=== PATIENT | female | born 1975 | race Caucasian/White ===

== ENCOUNTER 2019-03-03 08:47 | Day surgery (SDC) | payer OTHER, SELFPAY ==
--- NOTE | 2019-02-22 08:26 | HP.PCM_ITS ---
History and Physical Date of Admission: 03/03/19 Marielena Valencia is a 43 year old female who presents for vaginal wall cyst. Pt would like removal of cyst as it does affect her. Pt reports has noticed the mass protruding from vagina- although she reports over past couple of weeks it is not as swollen. Pt is still opting for removal at this time. Pt is scheduled for Vaginal wall cyst removal on 03/03/19 at [facility]. PAST MEDICAL HISTORY Diagnosis Date ? NEGATIVE MEDICAL HISTORY PAST SURGICAL HISTORY Procedure Laterality Date ? FULL ROUT OBSTE CARE, DELIV 03/04/2006 Breech - Male 6lbs 4oz. Assist - [place] FAMILY HISTORY Problem Relation Age of Onset ? Hypertension Mother ? Thyroid Mother Hypothyroidism ? Diabetes Mother ? Lipids Mother High Cholesterol ? Coronary Artery Disease Mother ? Heart Mother [place] ? Cancer Mother Bio-Duct Cancer ? other (Hypoglycemia) Mother ? Lipids Father High Cholesterol ? Coronary Artery Disease Father ? Hypertension Maternal Grandmother ? Aneurysm Maternal Grandmother ? Breast Cancer Paternal Grandmother ? Heart Maternal Uncle ? Diabetes Other MGGM Social History Socioeconomic History Marital status: Spouse name: Not on file Number of children: 1 Years of education: Not on file Highest education level: Not on file Social Needs Financial resource strain: Not on file Food insecurity - worry: Not on file Food insecurity - inability: Not on file Transportation needs - medical: Not on file Transportation needs - non-medical: Not on file Occupational History Occupation: Manager Of Sales Employer: [employer] Tobacco Use Smoking status: Never Smoker Smokeless tobacco: Never Used Substance and Sexual Activity Alcohol use: No Drug use: No Sexual activity: Not Currently Partners: Male Other Topics Concerns: Not on file Social History Narrative Not on file Current Outpatient Medications: Desogestrel-Ethinyl Estradiol (APRI) 0.15-0.03 mg per tablet Take 1 tablet by mouth once daily. MULTIVIT WITH CALCIUM,IRON,MIN (WOMEN'S DAILY MULTIVITAMIN ORAL) Take by mouth. ergocalciferol(VITAMIN D 400 UNIT CAP) Take one(1) tablet daily. ascorbic acid(VITAMIN C 500 MG TAB) Take one(1) tablet daily. ibuprofen (MOTRIN) 600 mg tablet Take 1 tablet by mouth every 6 hours as needed. FOR PAIN. No current facility-administered medications for this visit. Allergies As of Date: 02/22/2019 Allergen Noted Reaction ERYTHROMYCIN 09/10/2006 Hives Fully Assessed 02/22/2019 REVIEW OF SYSTEMS Abdomen: no pain Bladder: no dysuria .. Expanded ROS: GENERAL: Negative for fever Allergies and current medication updated:Yes EXAM: BP 102/58 Ht 5' 5.748 (1.67m) Wt 169 lb (76.7kg) LMP 02/08/2019 BMI 27.49 kg/(m^2). GENERAL: pleasant, female in no apparent distress HEENT: Normocephalic and atraumatic NECK: full range of motion DERMATOLOGY: Normal, without lesions, non-icteric and non-hirsute CARDIAC: regular rate and rhythm CHEST: Clear to auscultation Normal inspiratory effort NEURO: alert and oriented x3,exam grossly non-focal ASSESSMENT AND PLAN: Encounter Diagnosis ICD-10-CM 1. Vaginal wall cyst N89.8 2. Decision for surgical removal per patient request. 3. Pt has been counseled on risks/benefits and alternatives of surgery including but not limited to anesthesia, bleeding, infection, injury to pelvic structures as well as . Consent signed. 4. Motrin given post op pain 5. Restrictions reviewed for post op Brianna Aguilar MD
[2019-03-03] VITALS (7 sets, daily range): BP systolic 115–124; BP diastolic 72–79; PULSE 66–73; RESP 16; TEMP 36.6–37; O2SAT 99–100; BMI 27.2
[2019-03-03 09:10] LABS: Internal QC Validated? YES +Cl - CLEAR BKGD
[2019-03-03 09:13] LABS: Pregnancy, Urine Negative Negative
--- NOTE | 2019-03-03 11:00 | VAGW_PTH ---
PATIENT: MARYELLEN FLETCHER [place] [facility] [place][id number] AGE/SX: 43/F ROOM: RE03/03/[address]: Dr. Brianna Aguilar, MDDOB: 1975 BED: DIS: 03/03/2019 SPEC #: [id number] RECD: 03/04/19 07:13 STATUS: BRIANNA ALAN #: [id number] JADA: 03/03/19 11:[address]: Brianna Aguilar DEPT: SURGICAL PATHOLOGY RECD BY: Troy Gomez ENTERED: 03/04/19 10:58 SP TYPE: VAG WALL OTHR DR: No Primary Care Phys Tissues: Vagina, NOS Procedures: Surgery Specimen Level IV HEADER OPERATION: Removal cyst, vaginal wall PRE-OP DIAGNOSIS: Vaginal cyst TISSUE SUBMITTED: Vaginal cyst and vaginal wall MICROSCOPIC DIAGNOSIS Vaginal cyst and vaginal wall, biopsy: Fragments of squamous mucosa with minimal chronic inflammation. Benign fibrous walled cyst. No evidence of malignancy. AM:anna 03/07/19 MICROSCOPIC DESCRIPTION Slides are reviewed. GROSS DESCRIPTION Received in fixative is one container labeled with the patient's name and designated vaginal cyst and vaginal wall. The specimen consists of an irregular piece of whyte mucosal tissue measuring 3.5 x 1.5 x 0.3 cm. Also present in the container are two smaller pieces of mucosal tissue measuring 1.5 x 0.1 x 0.1 cm and 1 x 0.3 x 0.3 cm. The largest piece is inked and serially sectioned. The entire specimen is submitted in two cassettes. / SJ:anna 03/04/19 TC:5 CPT: 47698
--- NOTE | 2019-03-03 13:36 | PCM.OPRPT ---
Report of Operation Date of Procedure: 03/03/19 Pre-Operative Diagnosis: vaginal wall cyst Post-Operative Diagnosis: same Surgery/Procedure Performed:: removal of vaginal wall cyst Description of Surgical Findings:: Redundant vaginal tissue with cyst wall noted- no fluid filling cyst at this time. plastics and composites inspector: Samara Jeter Type of Anesthesia:: Local MAC Special Medications: 1% lidocaine with epinephrine ([id number]) Specimen's removed: vaginal cyst wall and vaginal wall Drains: none Estimated Blood Loss (mL): 5 Fluids Replaced: 800 Description of Procedure: Patient was placed in the lithotomy position. She was prepped and draped in normal sterile fashion. Bladder was drained approximately 100 cc of clear yellow urine. At this time vaginal retractors were placed. Redundant vaginal tissue was noted extending from the patient's right lateral vaginal wall posteriorly. At this time there is no fluid filling that redundant tissue to create the cyst that was seen in the office. At this time then the redundant vaginal tissue was grasped with Allis clamps and an incision was made at the apex of the vaginal tissue and taken down to the hymnal ring on the posterior aspect. At this time the cyst wall was grasped with Allises and dissected off using the Metzenbaum scissors. Finger placed in the rectum to ensure that there was no compromise of the rectum. Once the cyst wall was removed the rectovaginal fascia was reapproximated as it was very thin prior to the start of the case. It Was reapproximated using 0 Vicryl suture in an interrupted fashion. Once it was reapproximated again a rectal exam was performed and no sutures were through the rectal mucosa. At this time once the rectovaginal fascia was reapproximated the redundant vaginal tissue was removed. And then the incision was reapproximated using #2 Vicryl suture in a running fashion. Great hemostasis was appreciated- no complications. Lap and needle count were correct x2. Vaginal sweep was performed it was clear. Grafts/Implants Used: none - Complications no - Admit VTE Documentation VTE Present on Admission: Yes VTE Mechan Device Prophylaxis: SCD's VTE Pharm Prophylaxis ordered?: No
--- NOTE | 2019-03-03 13:44 | OP.PCM_ITS ---
Report of Operation Date of Procedure: 03/03/19 Pre-Operative Diagnosis: vaginal wall cyst Post-Operative Diagnosis: same Surgery/Procedure Performed:: removal of vaginal wall cyst Description of Surgical Findings:: Redundant vaginal tissue with cyst wall noted- no fluid filling cyst at this time. geophysical computer: Samara Jeter Type of Anesthesia:: Local MAC Special Medications: 1% lidocaine with epinephrine ([id number]) Specimen's removed: vaginal cyst wall and vaginal wall Drains: none Estimated Blood Loss (mL): 5 Fluids Replaced: 800 Description of Procedure: Patient was placed in the lithotomy position. She was prepped and draped in n ormal sterile fashion. Bladder was drained approximately 100 cc of clear yellow urine. At this time vaginal retractors were placed. Redundant vaginal tissue was noted extending from the patient's right lateral vaginal wall posteriorly. At this time there is no fluid filling that redundant tissue to create the cyst that was seen in the office. At this time then the redundant vaginal tissue was grasped with Allis clamps and an incision was made at the apex of the vaginal tissue and taken down to the hymnal ring on the posterior aspect. At this time the cyst wall was grasped with Allises and dissected off using the Metzenbaum scissors. Finger placed in the rectum to ensure that there was no compromise of the rectum. Once the cyst wall was removed the rectovaginal fascia was reapproximated as it was very thin prior to the start of the case. It Was reapproximated using 0 Vicryl suture in an interrupted fashion. Once it was reapproximated again a rectal exam was performed and no sutures were through the rectal mucosa. At this time once the rectovaginal fascia was reapproximated the redundant vaginal tissue was removed. And then the incision was reapproximated using #2 Vicryl suture in a running fashion. Great hemostasis was appreciated- no complications. Lap and needle count were correct x2. Vaginal sweep was performed it was clear. Grafts/Implants Used: none - Complications no - Admit VTE Documentation VTE Present on Admission: Yes VTE Mechan Device Prophylaxis: SCD's VTE Pharm Prophylaxis ordered?: No
--- NOTE | 2019-03-03 13:46 | DCINST_ITS ---
You will use the following diet at home:: No restrictions Discharge Activity: Return to Normal Activity, May Shower May resume sexual activity in: 4 weeks Lifting Restrictions: 25 Call your doctor if your incision/area has: Continuous Slow Oozing, Increased Pain/ Swelling, Foul Smelling Discharge Call your doctor if you observe: Fever of 101 or Higher, Inability to have a bowel movement, Using more than one pad per hour Allergies/Adverse Reactions: Allergies erythromycin base Allergy (Verified 03/03/19 09:20) Hives Medications to take at Discharge Ascorbic Acid [Vitamin C] 500 mg PO DAILY 02/24/19 Cholecalciferol (Vitamin D3) [Vitamin D3] 400 unit PO DAILY 02/24/19 Desogestrel-Ethinyl Estradiol [Apri] 1 each PO DAILY 02/24/19 Multivitamin [Daily Multiple Vitamin] 1 each PO DAILY 02/24/19 Zinc 50 mg PO DAILY 02/24/19 Primary Care Physician: Care Physician,No Primary [Primary Care Provider] - Test Results: Test results from this visit will be discussed in further detail at your follow- up appointment, if applicable. Please Follow Up With: Brianna Aguilar MD When: as scheduled
== END 2019-03-03 14:48 | disposition home or self-care (01) ==
LOC: SDC 08:47 → AC 08:50
PROVIDERS: Anesthesiology; Referring Provider Obstetrics & Gynecology; Visit Provider Obstetrics & Gynecology
PROC: (CPT 57135; principal; 2019-03-03 10:50)
DX: N89.8 Other specified noninflammatory disorders of vagina (principal)
CPT/HCPCS: 57135; 81025; 88305; J7120; J2405

== ENCOUNTER 2024-11-28 15:36 | Emergency (ER) | payer OTHER, SELFPAY ==
[2024-11-28 15:37] VITALS: BP 140/95; PULSE 78; RESP 18; TEMP 35.6; O2SAT 98; BMI 31.5
--- NOTE | 2024-11-28 15:51 | EKG12_ITS ---
Test Reason : DIZZY Blood Pressure : */* mmHG Vent. Rate : 68 BPM Atrial Rate : 68 BPM P-R Int : 158 ms QRS Dur : 92 ms QT Int : 394 ms P-R-T Axes : 0 -16 4 degrees QTcB Int : 418 ms Normal sinus rhythm Low voltage QRS Cannot rule out Anterior infarct , age undetermined Abnormal ECG Confirmed by Tato Ny ([id number]), medical transcription editor RICA TRIPATHI ([id number]) on 11/29/2024 1:24:01 PM Referred By: KAYLEIGH/BRIAN Confirmed By: Tato Ny
--- NOTE | 2024-11-28 16:17 | EDS_ITS ---
HPI History of Present Illness Chief Complaint: Dizziness Informant: patient Narrative Narrative: 49-year-old female 3-4 days gradual onset of disequilibrium when walking, spinning dizziness especially whenever she turns her head, but the symptoms have not been episodic they have been constant. Yesterday after the onset of the vertigo, she started gradually developing trouble hearing out of her right ear. She states it sounds muffled but she is able to hear. There is no ear pain. There is no headache, diplopia, vomiting. She has had some occasional nausea, and blurry vision whenever she feels really dizzy, but no diplopia, vision loss, or any peripheral neurologic symptoms or problems talking or understanding others. She has had no URI symptoms last couple weeks. No travel on a plane or otherwise up in the altitude. No seasonal allergy symptoms in the home. No sore throat. Seen at urgent care initially and referred here for evaluation by the nurse practitioner. Patient states she feels like the ear is the cause of this but the ear did not start bothering her until yesterday really. PFSH PFSH Medical History no medical history no medical history Home Medications ?Medication ?Instructions ?Recorded ?Last Taken ?Type Desogestrel-Ethinyl Estradiol 1 ea PO DAILY 02/24/19 03/03/19 04:30 History [Apri 28 Day Tablet] ascorbic acid (vitamin C) 500 mg 500 mg PO DAILY 02/24/19 Unknown History capsule cholecalciferol (vitamin D3) 10 400 unit PO DAILY 02/24/19 Unknown History mcg (400 unit) capsule (Vitamin D3) multivitamin (Daily Multiple 1 ea PO DAILY 02/24/19 Unknown History tablet) zinc 50 mg tablet 50 mg PO DAILY 02/24/19 Unknown History fluticasone propionate 50 2 spray intranasal DAILY #1 BOTTLE 11/28/24 Unknown Rx mcg/actuation nasal spray,suspension meclizine 25 mg tablet 25 mg PO Q8H PRN PRN Dizziness #20 11/28/24 Unknown Rx tabs Allergy/AdvReac Type Severity Reaction Status Date / Time erythromycin base Allergy Hives Verified 11/28/24 15:37 Social History Smoking Status: Never smoker ROS ROS ED Constitutional Constitutional ED: Denies chills or fever(s) Eyes Eyes: Denies change in vision or diplopia ENT ENT ED: Reports as per HPI, abnormal hearing, disequillibrium and dizziness; Denies ear pain, headache(s), hearing loss, hoarseness, rhinorrhea, sore throat or tinnitus Cardiovascular Cardiovascular: Denies chest pain or palpitations Respiratory/Chest Respiratory/Chest: Denies cough or dyspnea Gastrointestinal Gastrointestinal: Reports nausea; Denies abdominal pain, diarrhea or vomiting Genitourinary Genitourinary ED: Denies dysuria or hematuria Musculoskeletal Musculoskeletal: Denies back pain or neck pain Integumentary Denies abscess or rash Neurologic Neurologic: Reports as per HPI, abnormal gait and disequilibrium; Denies headache(s), paresthesias or weakness Psychiatric Psychiatric: Denies anxiety or suicidal thoughts EXAM Physical Exam Const Vital Signs: 11/28/24 15:37 Temperature 96.1 F L Temperature Source Temporal Pulse Rate 78 Respiratory Rate 18 Blood Pressure 140/95 H Blood Pressure Mean 110 Pulse Ox 98 Oxygen Delivery Method Room Air Positive well nourished and well developed General Appearance ED: well developed and NAD HEENT Reports moist mucous membranes HEENT Narrative: Left TM and EAC normal. Right EAC is normal, the TM appears to be bulging. Do not see an air-fluid level, it is not erythematous, light reflex is present bilaterally, but it appears bulging whereas the left did not. There is no otorrhea or perforation. normocephalic and atraumatic Eyes PERRL and EOMs intact bilaterally Eyes Narrative: No direction changing nystagmus. No vertical or rotatory nystagmus. Neck full ROM and supple Resp normal respiratory effort and clear to auscultation bilaterally Cardio regular rate, regular rhythm and no murmurs GI non-tender and non-distended Auscultation: normoactive bowel sounds Palpation: soft Back/Spine no CVA tenderness General Back: other FROM Extremity normal to inspection General Extremety ED: Negative for edema, pulses abnormal or tenderness General Extremity: Negative for edema or pulses abnormal Neuro oriented x3, CN's II-XII intact bilaterally and no sensory deficits noted Neuro Narrative: Normal speech. No dysmetria hands or feet. Normal telephone operator receptionist. Negative Romberg. Normal gait although she states she feels disequilibrium. Normal skew test. Abnormal jolt test. There is a follow-up saccade, patient gets some transient blurry vision diffusely, has trouble focusing. Sensorium / Orientation: awake and alert Motor Exam: strength 5/5 throughout Psych mental status grossly normal Skin no rashes or lesions noted and no wounds MDM MDM MDM Narrative Medical decision making narrative: I had the patient hold her nose and gently blow pressure, she did feel the right ear pop a little more than the left, consistent with what appears to be a serous effusion. Her neurologic exam is all consistent with peripheral etiology of vertigo and her vital signs support that as well with her blood pressure being 140/95, not severely elevated. She has no risk factors for TIA or stroke. She has an abnormal jolt test, and the rest of her exam is otherwise normal neurologically. Do not think she needs a head CT although we considered it. I think I would treat her effusion with fluticasone nasal and pseudoephedrine which she has not tried since the ear symptoms have been present, as well as treating her with meclizine as needed for the dizziness and follow-up with otolaryngology if she does not have resolution in about a week. She is comfortable with that plan. Discharge Plan Triage Chief Complaint: Dizziness ED Provider: Juan Jose Richard Dx/Rx/DC Orders Clinical Impression: Acute vestibular syndrome, Acute effusion of right ear Instructions: ED Vertigo, Unspecified Prescriptions: New meclizine 25 mg tablet 25 mg PO Q8H PRN PRN (Reason: Dizziness) Qty: 20 0RF fluticasone propionate 50 mcg/actuation spray,suspension 2 spray intranasal DAILY Qty: 1 0RF Rx Instructions: administer into each nostril No Action multivitamin [Daily Multiple] 1 EACH tablet 1 ea PO DAILY zinc 50 MG tablet 50 mg PO DAILY cholecalciferol (vitamin D3) [Vitamin D3] 400 UNIT capsule 400 unit PO DAILY ascorbic acid (vitamin C) 500 MG capsule 500 mg PO DAILY Desogestrel-Ethinyl Estradiol [Apri 28 Day Tablet] 1 EACH tablet 1 ea PO DAILY Primary Care Provider: Ioana Meza Referrals: Juan J Cisse MD [Med Staff - Active Staff] - 1 Week if not improving Activity Restrictions/Additional Instructions: Use nasal spray daily both nostrils inhaled, for at least a week, continue for another week if symptoms have not yet resolved. May take Sudafed or generic equivalent which is either phenylephrine or Sudafed urine, twice daily as needed for the ear/hearing. Print Language: Czech Disposition Disposition: Home, Self Care
[2024-11-28] MEDS: Meclizine HCl 25 MG Tablet PO (16:19)
--- NOTE | 2024-11-28 16:23 | ED.RN ---
PT C/O DIZZINESS CONTINUOUSLY SINCE THURSDAY. PATIENT DENIES ANY OTHER SYMPTOMS.
[2024-11-28 17:06] VITALS: BP 132/77; PULSE 74; RESP 16; TEMP 36.4; O2SAT 99
== END 2024-11-28 17:07 | disposition home or self-care (01) ==
LOC: ED 16:32
PROVIDERS: Emergency Provider Emergency Medicine; PCP Internal Medicine; Visit Provider Emergency Medicine
DX: H81.20 Vestibular neuronitis, unspecified ear (principal); H92.01 Otalgia, right ear
CPT/HCPCS: 93005; 99282

== ENCOUNTER → 2025-01-04 | Outpatient (CLI) | payer OTHER, SELFPAY ==
--- NOTE | 2025-01-04 07:25 | MRI_ITS ---
PROCEDURE: MRI BRAIN and IAC's w/WO CONTRAST REASON FOR EXAM: Ataxia, dizziness. TECHNIQUE: Multiplanar, multisequence MRI of the brain with and without intravenous gadolinium-based contrast. CONTRAST: 18 cc Clariscan. COMPARISON: None. FINDINGS: Brain volume is age appropriate. The ventricles are not effaced or dilated. No midline shift, mass effect, or extra-axial fluid collections are identified. No abnormal brain parenchymal signal is seen with FLAIR imaging. No diffusion restriction is identified on diffusion-weighted imaging to suggest acute/subacute ischemic changes. No acute intracranial hemorrhage or acute territorial infarction is seen. No abnormal enhancement is identified. Bilateral cranial nerves 7 and 8 complexes are within normal limits with no abnormal enhancement or enhancing mass. Bilateral preganglionic cranial nerve 5 are unremarkable. Bilateral cerebellopontine angles are intact. Brainstem is intact. Bilateral mastoid air cells are well pneumatized. Corpus callosum, optic chiasm, suprasellar cistern, and cerebellar tonsils are within normal range. Major vascular flow voids are present. Bilateral orbits are intact. Nasal septum is deviated to the right. There is mild mucosal thickening of the inferior bilateral maxillary sinuses. MRI/Brain W/WO Contrast IMPRESSION: 1. Bilateral internal auditory canals are within normal limits with no abnormal enhancement or enhancing mass. 2. No acute intracranial process or abnormal enhancement. Reading [facility]
== END | disposition home or self-care (01) ==
PROVIDERS: PCP Internal Medicine; Referring Provider Otolaryngology; Visit Provider Otolaryngology
DX: R27.0 Ataxia, unspecified (principal)
CPT/HCPCS: 70553; A9575